=== PATIENT | male | born 1960 | race Caucasian/White ===

== ENCOUNTER 2017-10-31 14:15 | Emergency (ER) | payer SELFPAY ==
[~2017-10-31] VITALS: Ht 157.5 cm; Wt 60.0 kg
[2017-10-31] MEDS ORDERED: IBUPROFEN 600MG TABLET PO ONE (14:45)
[2017-10-31 19:21] VITALS: BP 119/74
== END 2017-10-31 19:22 | disposition home or self-care (01) ==
LOC: ER 14:51
DX: S62.657A Nondisplaced fracture of middle phalanx of left little finger, initial encounter for closed fracture (principal); F10.129 Alcohol abuse with intoxication, unspecified; F17.200 Nicotine dependence, unspecified, uncomplicated; Y08.89XA Assault by other specified means, initial encounter; Y93.89 Activity, other specified; Y92.89 Other specified places as the place of occurrence of the external cause; Y99.8 Other external cause status; Y90.9 Presence of alcohol in blood, level not specified
CPT/HCPCS: 29130; 73110; 73130; 99284